=== PATIENT | female | born 1955 | race Caucasian/White ===

== ENCOUNTER 2022-09-28 10:37 | Day surgery (SDC) | payer OTHER ==
[~2022-09-28] VITALS: Ht 157.5 cm; Wt 58.1 kg
[2022-09-28] MEDS ORDERED: fentaNYL citrate 0.05 MG/ML VIAL ONE (11:15)
[2022-09-28] MEDS ORDERED: diphenhydrAMINE 50 MG/ML VIAL ONE (11:16)
[2022-09-28] MEDS ORDERED: LIDOCAINE 2% 100 MG/5 ML UJET TP ONE (11:16)
[2022-09-28] MEDS ORDERED: MIDAZOLAM 5 MG/5 ML VIAL ONE (11:16)
[2022-09-28] MEDS ORDERED: MIDAZOLAM 2 MG/2 ML VIAL ONE (11:37)
[2022-09-28] MEDS ORDERED: MIDAZOLAM 5 MG/5 ML VIAL IV ONE (12:20)
[2022-09-28] MEDS ORDERED: diphenhydrAMINE 50 MG/ML VIAL IVP ONE (12:20)
[2022-09-28] MEDS ORDERED: fentaNYL citrate 0.05 MG/ML VIAL IVP ONE (12:20)
== END 2022-09-28 13:18 | disposition home or self-care (01) ==
LOC: MDS 10:37 → MMU 10:38 → MDS 13:18
PROVIDERS: ATTEND Internal Medicine Gastroenterology
DX: Z12.11 Encounter for screening for malignant neoplasm of colon (principal); K57.30 Diverticulosis of large intestine without perforation or abscess without bleeding; K63.89 Other specified diseases of intestine; I10 Essential (primary) hypertension; K21.9 Gastro-esophageal reflux disease without esophagitis; E03.9 Hypothyroidism, unspecified; Z90.49 Acquired absence of other specified parts of digestive tract; Z20.822 Contact with and (suspected) exposure to COVID-19; Z79.899 Other long term (current) drug therapy
CPT/HCPCS: 87426; G0121; J1200; J2250; J3010